=== PATIENT | male | born 1945 | race Caucasian/White ===

== ENCOUNTER 2021-05-26 14:46 | Inpatient (IN) ==
[2021-06-02] MEDS: *HR* OxyCODONE Immed Rel 5 MG TABLET PO PRN (20:32)
[2021-06-02] MEDS: carvediloL 6.25 MG TABLET PO SCH (21:22)
[2021-06-02] MEDS: Acetaminophen 325 MG TABLET PO PRN (22:17)
[2021-06-02] MEDS: diazePAM 5 MG TABLET PO PRN (22:18)
[2021-06-03] MEDS: *HR* OxyCODONE Immed Rel 5 MG TABLET PO PRN ×3 (04:47→19:37)
[2021-06-03] MEDS: *HR* Enoxaparin 40 MG/0.4 ML SYRINGE SQ SCH (04:47)
[2021-06-03 06:08] LABS: Basophils % 0.3 %; Eosinophils # 0.2 K/mcL (0.0-0.6); Eosinophils % 2.5 %; Hematocrit 38.2 % (37.5-50.1); Hemoglobin 12.3 g/dL (12.9-16.9); Immature Granulocytes % 0.7 % (0-4); Lymphocytes # 2.2 K/mcL (0.6-4.6); Lymphocytes % 30.2 %; Mean Corpuscular HGB Conc 32.2 g/dL (31.6-35.5); Mean Corpuscular Hemoglobin 29.5 pg (28.0-33.3); Mean Corpuscular Volume 91.6 fL (83.0-100.0); Mean Platelet Volume 10.1 fL (9.4-12.4); Monocytes % 13.8 %; Neutrophils # 3.8 K/mcL (1.6-8.9); Platelet Count 579 K/mcL (140-400); Red Blood Count 4.17 M/mcL (4.19-5.50); Red Cell Distribution Width 14.7 % (11.5-14.5); Segmented Neutrophils % 52.5 %; White Blood Count 7.2 K/mcL (4.3-11.1)
[2021-06-03 07:19] LABS: BUN/Creatinine Ratio 18 (6-26); Blood Urea Nitrogen 14 mg/dL (8-23); Calcium 9.5 mg/dL (8.6-10.3); Carbon Dioxide 29 mEq/L (23-29); Chloride 96 mEq/L (98-107); Glucose 83 mg/dL (70-105); Osmolality,Calculated 274 (280-300); Potassium 4.2 mEq/L (3.5-5.1); Sodium 132 mEq/L (136-145); eGFR For African Americans > 60 (> 60); eGFR For Non-African Americans > 60 (> 60)
[2021-06-03] MEDS ORDERED: NON-FORMULARY MEDICATION 1 EACH EACH PO SCH (09:00)
[2021-06-03] MEDS: amLODIPine 5 MG TABLET PO SCH (09:29)
[2021-06-03] MEDS: Cholecalciferol (D-3) 1,000 UNIT (25MCG) TABLET PO SCH (09:29)
[2021-06-03] MEDS: carvediloL 6.25 MG TABLET PO SCH ×2 (09:29→16:41)
[2021-06-03] MEDS: DHA PO SCH (09:30)
[2021-06-03] MEDS: FISH OIL PO SCH (09:30)
[2021-06-03] MEDS: OMEGA PO SCH (09:30)
[2021-06-03] MEDS: lisinopriL 20 MG TABLET PO SCH (09:30)
[2021-06-03] MEDS: EPA PO SCH (09:30)
[2021-06-04] MEDS: *HR* OxyCODONE Immed Rel 5 MG TABLET PO PRN ×4 (00:54→20:01)
[2021-06-04] MEDS: *HR* Enoxaparin 40 MG/0.4 ML SYRINGE SQ SCH (04:26)
[2021-06-04] MEDS: EPA PO SCH (08:06)
[2021-06-04] MEDS: OMEGA PO SCH (08:06)
[2021-06-04] MEDS: Cholecalciferol (D-3) 1,000 UNIT (25MCG) TABLET PO SCH (08:06)
[2021-06-04] MEDS: lisinopriL 20 MG TABLET PO SCH (08:06)
[2021-06-04] MEDS: FISH OIL PO SCH (08:06)
[2021-06-04] MEDS: amLODIPine 5 MG TABLET PO SCH (08:06)
[2021-06-04] MEDS: DHA PO SCH (08:06)
[2021-06-04] MEDS: carvediloL 6.25 MG TABLET PO SCH ×2 (08:06→16:04)
[2021-06-05] MEDS: *HR* OxyCODONE Immed Rel 5 MG TABLET PO PRN ×2 (00:43→05:21)
[2021-06-05] MEDS: *HR* Enoxaparin 40 MG/0.4 ML SYRINGE SQ SCH (05:22)
[2021-06-05 06:13] LABS: Hematocrit 38.3 % (37.5-50.1); Hemoglobin 12.4 g/dL (12.9-16.9); Mean Corpuscular HGB Conc 32.4 g/dL (31.6-35.5); Mean Corpuscular Hemoglobin 29.9 pg (28.0-33.3); Mean Corpuscular Volume 92.3 fL (83.0-100.0); Platelet Count 606 K/mcL (140-400); Red Blood Count 4.15 M/mcL (4.19-5.50); Red Cell Distribution Width 14.5 % (11.5-14.5); White Blood Count 6.9 K/mcL (4.3-11.1)
[2021-06-05 06:33] LABS: BUN/Creatinine Ratio 25 (6-26); Blood Urea Nitrogen 24 mg/dL (8-23); Carbon Dioxide 31 mEq/L (23-29); Chloride 95 mEq/L (98-107); Glucose 88 mg/dL (70-105); Magnesium 2.1 mg/dL (1.6-2.6); Osmolality,Calculated 273 (280-300); Potassium 4.6 mEq/L (3.5-5.1); Sodium 130 mEq/L (136-145); eGFR For African Americans > 60 (> 60); eGFR For Non-African Americans > 60 (> 60)
[2021-06-05] MEDS: carvediloL 6.25 MG TABLET PO SCH ×2 (08:03→17:27)
[2021-06-05] MEDS: lisinopriL 20 MG TABLET PO SCH (08:03)
[2021-06-05] MEDS: amLODIPine 5 MG TABLET PO SCH (08:03)
[2021-06-05] MEDS: Cholecalciferol (D-3) 1,000 UNIT (25MCG) TABLET PO SCH (08:04)
[2021-06-05] MEDS: EPA PO SCH (11:55)
[2021-06-05] MEDS: DHA PO SCH (11:55)
[2021-06-05] MEDS: OMEGA PO SCH (11:55)
[2021-06-05] MEDS: FISH OIL PO SCH (11:55)
[2021-06-05] MEDS: Acetaminophen 325 MG TABLET PO PRN (17:29)
[2021-06-06] MEDS: *HR* Enoxaparin 40 MG/0.4 ML SYRINGE SQ SCH (06:01)
[2021-06-06] MEDS: Acetaminophen 325 MG TABLET PO PRN (06:01)
[2021-06-06] MEDS: lisinopriL 20 MG TABLET PO SCH (08:18)
[2021-06-06] MEDS: Cholecalciferol (D-3) 1,000 UNIT (25MCG) TABLET PO SCH (08:18)
[2021-06-06] MEDS: carvediloL 6.25 MG TABLET PO SCH ×2 (08:18→17:49)
[2021-06-06] MEDS: amLODIPine 5 MG TABLET PO SCH (08:18)
[2021-06-06] MEDS: OMEGA PO SCH (10:11)
[2021-06-06] MEDS: EPA PO SCH (10:11)
[2021-06-06] MEDS: FISH OIL PO SCH (10:11)
[2021-06-06] MEDS: DHA PO SCH (10:11)
[2021-06-06] MEDS ORDERED: Ondansetron ODT 4 MG TAB.RAPDIS SL PRN (10:33)
[2021-06-06] MEDS ORDERED: Simethicone 80 MG TAB.CHEW PO PRN (10:34)
[2021-06-06] MEDS: carvediloL 25 MG TABLET PO SCH (17:18)
[2021-06-07] MEDS: Acetaminophen 325 MG TABLET PO PRN (05:25)
[2021-06-07] MEDS: *HR* Enoxaparin 40 MG/0.4 ML SYRINGE SQ SCH (05:25)
[2021-06-07] MEDS: carvediloL 25 MG TABLET PO SCH ×2 (12:07→17:41)
[2021-06-07] MEDS: lisinopriL 20 MG TABLET PO SCH (12:12)
[2021-06-07] MEDS: Cholecalciferol (D-3) 1,000 UNIT (25MCG) TABLET PO SCH (12:12)
[2021-06-07] MEDS: amLODIPine 5 MG TABLET PO SCH (12:12)
[2021-06-07] MEDS: EPA PO SCH (12:13)
[2021-06-07] MEDS: DHA PO SCH (12:13)
[2021-06-07] MEDS: OMEGA PO SCH (12:13)
[2021-06-07] MEDS: FISH OIL PO SCH (12:13)
[2021-06-08] MEDS: *HR* OxyCODONE Immed Rel 5 MG TABLET PO PRN (04:43)
[2021-06-08] MEDS: *HR* Enoxaparin 40 MG/0.4 ML SYRINGE SQ SCH (04:46)
[2021-06-08] MEDS: FISH OIL PO SCH (08:32)
[2021-06-08] MEDS: carvediloL 25 MG TABLET PO SCH ×2 (08:32→16:55)
[2021-06-08] MEDS: OMEGA PO SCH (08:32)
[2021-06-08] MEDS: EPA PO SCH (08:32)
[2021-06-08] MEDS: DHA PO SCH (08:32)
[2021-06-08] MEDS: amLODIPine 5 MG TABLET PO SCH (08:32)
[2021-06-08] MEDS: Cholecalciferol (D-3) 1,000 UNIT (25MCG) TABLET PO SCH (08:32)
[2021-06-08] MEDS: lisinopriL 20 MG TABLET PO SCH (08:32)
[2021-06-08] MEDS: Gabapentin 300 MG CAPSULE PO SCH ×2 (14:52→19:59)
[2021-06-09] MEDS: *HR* Enoxaparin 40 MG/0.4 ML SYRINGE SQ SCH (04:42)
[2021-06-09] MEDS: *HR* OxyCODONE Immed Rel 5 MG TABLET PO PRN (04:45)
[2021-06-09 04:50] LABS: Hematocrit 37.6 % (37.5-50.1); Hemoglobin 12.1 g/dL (12.9-16.9); Mean Corpuscular HGB Conc 32.2 g/dL (31.6-35.5); Mean Corpuscular Volume 93.1 fL (83.0-100.0); Mean Platelet Volume 9.9 fL (9.4-12.4); Platelet Count 512 K/mcL (140-400); Red Blood Count 4.04 M/mcL (4.19-5.50); Red Cell Distribution Width 14.4 % (11.5-14.5)
[2021-06-09 05:05] LABS: BUN/Creatinine Ratio 26 (6-26); Blood Urea Nitrogen 25 mg/dL (8-23); Calcium 9.7 mg/dL (8.6-10.3); Carbon Dioxide 28 mEq/L (23-29); Chloride 100 mEq/L (98-107); Glucose 92 mg/dL (70-105); Osmolality,Calculated 280 (280-300); Potassium 4.7 mEq/L (3.5-5.1); Sodium 133 mEq/L (136-145); eGFR For African Americans > 60 (> 60); eGFR For Non-African Americans > 60 (> 60)
[2021-06-09] MEDS: EPA PO SCH (09:19)
[2021-06-09] MEDS: DHA PO SCH (09:19)
[2021-06-09] MEDS: OMEGA PO SCH (09:19)
[2021-06-09] MEDS: FISH OIL PO SCH (09:19)
[2021-06-09] MEDS: Gabapentin 300 MG CAPSULE PO SCH ×3 (09:20→19:37)
[2021-06-09] MEDS: Cholecalciferol (D-3) 1,000 UNIT (25MCG) TABLET PO SCH (09:20)
[2021-06-09] MEDS: amLODIPine 5 MG TABLET PO SCH (09:20)
[2021-06-09] MEDS: lisinopriL 20 MG TABLET PO SCH (09:20)
[2021-06-09] MEDS: carvediloL 25 MG TABLET PO SCH ×2 (09:20→17:06)
[2021-06-10] MEDS: *HR* Enoxaparin 40 MG/0.4 ML SYRINGE SQ SCH (04:58)
[2021-06-10] MEDS: lisinopriL 20 MG TABLET PO SCH (08:06)
[2021-06-10] MEDS: carvediloL 25 MG TABLET PO SCH (08:06)
[2021-06-10] MEDS: Gabapentin 300 MG CAPSULE PO SCH ×3 (08:06→19:51)
[2021-06-10] MEDS: amLODIPine 5 MG TABLET PO SCH (08:06)
[2021-06-10] MEDS: Cholecalciferol (D-3) 1,000 UNIT (25MCG) TABLET PO SCH (08:07)
[2021-06-10] MEDS: OMEGA PO SCH (08:07)
[2021-06-10] MEDS: DHA PO SCH (08:07)
[2021-06-10] MEDS: FISH OIL PO SCH (08:07)
[2021-06-10] MEDS: EPA PO SCH (08:07)
[2021-06-10] MEDS: carvediloL 6.25 MG TABLET PO SCH (17:06)
[2021-06-11] MEDS: *HR* Enoxaparin 40 MG/0.4 ML SYRINGE SQ SCH (05:36)
[2021-06-11] MEDS: amLODIPine 5 MG TABLET PO SCH (08:35)
[2021-06-11] MEDS: Cholecalciferol (D-3) 1,000 UNIT (25MCG) TABLET PO SCH (08:35)
[2021-06-11] MEDS: carvediloL 6.25 MG TABLET PO SCH ×2 (08:35→16:59)
[2021-06-11] MEDS: Gabapentin 300 MG CAPSULE PO SCH ×3 (08:35→20:43)
[2021-06-11] MEDS: EPA PO SCH (08:36)
[2021-06-11] MEDS: FISH OIL PO SCH (08:36)
[2021-06-11] MEDS: DHA PO SCH (08:36)
[2021-06-11] MEDS: OMEGA PO SCH (08:36)
[2021-06-11] MEDS: lisinopriL 20 MG TABLET PO SCH (08:36)
[2021-06-12] MEDS: *HR* OxyCODONE Immed Rel 5 MG TABLET PO PRN (02:11)
[2021-06-12] MEDS: *HR* Enoxaparin 40 MG/0.4 ML SYRINGE SQ SCH (05:52)
[2021-06-12] MEDS: Cholecalciferol (D-3) 1,000 UNIT (25MCG) TABLET PO SCH (08:33)
[2021-06-12] MEDS: lisinopriL 20 MG TABLET PO SCH (08:33)
[2021-06-12] MEDS: carvediloL 6.25 MG TABLET PO SCH ×2 (08:33→16:40)
[2021-06-12] MEDS: amLODIPine 5 MG TABLET PO SCH (08:33)
[2021-06-12] MEDS: Gabapentin 300 MG CAPSULE PO SCH ×3 (08:33→21:30)
[2021-06-12] MEDS: FISH OIL PO SCH (08:35)
[2021-06-12] MEDS: DHA PO SCH (08:35)
[2021-06-12] MEDS: OMEGA PO SCH (08:35)
[2021-06-12] MEDS: EPA PO SCH (08:35)
[2021-06-13] MEDS: *HR* OxyCODONE Immed Rel 5 MG TABLET PO PRN (06:13)
[2021-06-13] MEDS: *HR* Enoxaparin 40 MG/0.4 ML SYRINGE SQ SCH (06:13)
[2021-06-13] MEDS: Cholecalciferol (D-3) 1,000 UNIT (25MCG) TABLET PO SCH (09:11)
[2021-06-13] MEDS: Gabapentin 300 MG CAPSULE PO SCH ×3 (09:11→21:00)
[2021-06-13] MEDS: lisinopriL 20 MG TABLET PO SCH (09:11)
[2021-06-13] MEDS: carvediloL 6.25 MG TABLET PO SCH ×2 (09:11→16:56)
[2021-06-13] MEDS: amLODIPine 5 MG TABLET PO SCH (09:11)
[2021-06-13] MEDS: OMEGA PO SCH (09:13)
[2021-06-13] MEDS: FISH OIL PO SCH (09:13)
[2021-06-13] MEDS: DHA PO SCH (09:13)
[2021-06-13] MEDS: EPA PO SCH (09:13)
[2021-06-13] MEDS: Sennosides 8.6 MG TABLET PO SCH ×2 (21:00→21:09)
[2021-06-14] MEDS: *HR* Enoxaparin 40 MG/0.4 ML SYRINGE SQ SCH (04:33)
[2021-06-14] MEDS: *HR* OxyCODONE Immed Rel 5 MG TABLET PO PRN (04:34)
[2021-06-14] MEDS: Gabapentin 300 MG CAPSULE PO SCH ×3 (08:42→20:52)
[2021-06-14] MEDS: amLODIPine 5 MG TABLET PO SCH (08:42)
[2021-06-14] MEDS: DHA PO SCH (08:42)
[2021-06-14] MEDS: EPA PO SCH (08:42)
[2021-06-14] MEDS: Cholecalciferol (D-3) 1,000 UNIT (25MCG) TABLET PO SCH (08:42)
[2021-06-14] MEDS: FISH OIL PO SCH (08:42)
[2021-06-14] MEDS: lisinopriL 20 MG TABLET PO SCH (08:42)
[2021-06-14] MEDS: Sennosides 8.6 MG TABLET PO SCH ×2 (08:42→20:52)
[2021-06-14] MEDS: OMEGA PO SCH (08:42)
[2021-06-14] MEDS: carvediloL 6.25 MG TABLET PO SCH ×2 (08:43→16:34)
[2021-06-15 04:39] LABS: Hematocrit 37.3 % (37.5-50.1); Hemoglobin 11.9 g/dL (12.9-16.9); Mean Corpuscular HGB Conc 31.9 g/dL (31.6-35.5); Mean Corpuscular Hemoglobin 29.6 pg (28.0-33.3); Mean Corpuscular Volume 92.8 fL (83.0-100.0); Mean Platelet Volume 9.9 fL (9.4-12.4); Platelet Count 447 K/mcL (140-400); Red Blood Count 4.02 M/mcL (4.19-5.50); Red Cell Distribution Width 14.1 % (11.5-14.5); White Blood Count 6.4 K/mcL (4.3-11.1)
[2021-06-15 04:54] LABS: BUN/Creatinine Ratio 31 (6-26); Blood Urea Nitrogen 30 mg/dL (8-23); Calcium 9.4 mg/dL (8.6-10.3); Carbon Dioxide 28 mEq/L (23-29); Chloride 99 mEq/L (98-107); Glucose 99 mg/dL (70-105); Magnesium 2.1 mg/dL (1.6-2.6); Osmolality,Calculated 282 (280-300); Potassium 4.7 mEq/L (3.5-5.1); Sodium 133 mEq/L (136-145); eGFR For African Americans > 60 (> 60); eGFR For Non-African Americans > 60 (> 60)
[2021-06-15] MEDS: *HR* Enoxaparin 40 MG/0.4 ML SYRINGE SQ SCH (05:22)
[2021-06-15] MEDS: lisinopriL 20 MG TABLET PO SCH (08:14)
[2021-06-15] MEDS: Cholecalciferol (D-3) 1,000 UNIT (25MCG) TABLET PO SCH (08:14)
[2021-06-15] MEDS: Gabapentin 300 MG CAPSULE PO SCH ×3 (08:16→20:00)
[2021-06-15] MEDS: amLODIPine 5 MG TABLET PO SCH (08:16)
[2021-06-15] MEDS: carvediloL 6.25 MG TABLET PO SCH ×2 (08:17→17:27)
[2021-06-15] MEDS: Sennosides 8.6 MG TABLET PO SCH ×2 (08:18→20:00)
[2021-06-15] MEDS: FISH OIL PO SCH (09:12)
[2021-06-15] MEDS: DHA PO SCH (09:12)
[2021-06-15] MEDS: EPA PO SCH (09:12)
[2021-06-15] MEDS: OMEGA PO SCH (09:12)
[2021-06-16] MEDS: *HR* OxyCODONE Immed Rel 5 MG TABLET PO PRN (01:04)
[2021-06-16] MEDS: Acetaminophen 325 MG TABLET PO PRN (03:07)
[2021-06-16] MEDS: diazePAM 5 MG TABLET PO PRN (03:07)
[2021-06-16] MEDS: *HR* Enoxaparin 40 MG/0.4 ML SYRINGE SQ SCH (06:53)
[2021-06-16] MEDS: amLODIPine 5 MG TABLET PO SCH (08:36)
[2021-06-16] MEDS: lisinopriL 20 MG TABLET PO SCH (08:36)
[2021-06-16] MEDS: Sennosides 8.6 MG TABLET PO SCH ×2 (08:36→20:12)
[2021-06-16] MEDS: Cholecalciferol (D-3) 1,000 UNIT (25MCG) TABLET PO SCH (08:36)
[2021-06-16] MEDS: Gabapentin 300 MG CAPSULE PO SCH ×3 (08:36→20:12)
[2021-06-16] MEDS: carvediloL 6.25 MG TABLET PO SCH ×2 (08:36→16:07)
[2021-06-16] MEDS: OMEGA PO SCH (08:37)
[2021-06-16] MEDS: DHA PO SCH (08:37)
[2021-06-16] MEDS: FISH OIL PO SCH (08:37)
[2021-06-16] MEDS: EPA PO SCH (08:37)
[2021-06-16] MEDS: polyethylene glycoL 3350 17 GM POWD.PACK PO PRN (10:16)
[2021-06-16] MEDS ORDERED: 0.9 % Sodium Chloride 1,000 ML IVC SCH (19:30)
[2021-06-17] MEDS: *HR* Enoxaparin 40 MG/0.4 ML SYRINGE SQ SCH (04:57)
[2021-06-17] MEDS: amLODIPine 5 MG TABLET PO SCH (08:05)
[2021-06-17] MEDS: Gabapentin 300 MG CAPSULE PO SCH ×3 (08:06→20:21)
[2021-06-17] MEDS: Sennosides 8.6 MG TABLET PO SCH ×2 (08:06→20:21)
[2021-06-17] MEDS: Cholecalciferol (D-3) 1,000 UNIT (25MCG) TABLET PO SCH (08:06)
[2021-06-17] MEDS: EPA PO SCH (08:06)
[2021-06-17] MEDS: OMEGA PO SCH (08:06)
[2021-06-17] MEDS: DHA PO SCH (08:06)
[2021-06-17] MEDS: FISH OIL PO SCH (08:06)
[2021-06-17] MEDS: lisinopriL 20 MG TABLET PO SCH (08:06)
[2021-06-17] MEDS: carvediloL 6.25 MG TABLET PO SCH ×2 (08:06→16:07)
[2021-06-17] MEDS: Acetaminophen 325 MG TABLET PO PRN (16:05)
[2021-06-18] MEDS: Acetaminophen 325 MG TABLET PO PRN ×2 (01:32→12:17)
[2021-06-18] MEDS: diazePAM 5 MG TABLET PO PRN (01:33)
[2021-06-18] MEDS: *HR* Enoxaparin 40 MG/0.4 ML SYRINGE SQ SCH (06:30)
[2021-06-18] MEDS: *HR* OxyCODONE Immed Rel 5 MG TABLET PO PRN (06:35)
[2021-06-18] MEDS: Gabapentin 300 MG CAPSULE PO SCH ×3 (08:34→20:35)
[2021-06-18] MEDS: lisinopriL 20 MG TABLET PO SCH (08:35)
[2021-06-18] MEDS: Sennosides 8.6 MG TABLET PO SCH ×2 (08:35→20:35)
[2021-06-18] MEDS: Cholecalciferol (D-3) 1,000 UNIT (25MCG) TABLET PO SCH (08:35)
[2021-06-18] MEDS: amLODIPine 5 MG TABLET PO SCH (08:35)
[2021-06-18] MEDS: carvediloL 6.25 MG TABLET PO SCH ×2 (08:35→17:30)
[2021-06-18] MEDS: DHA PO SCH (08:36)
[2021-06-18] MEDS: OMEGA PO SCH (08:36)
[2021-06-18] MEDS: FISH OIL PO SCH (08:36)
[2021-06-18] MEDS: EPA PO SCH (08:36)
[2021-06-18] MEDS: polyethylene glycoL 3350 17 GM POWD.PACK PO PRN (14:55)
[2021-06-19] MEDS: *HR* Enoxaparin 40 MG/0.4 ML SYRINGE SQ SCH (05:58)
[2021-06-19] MEDS: Acetaminophen 325 MG TABLET PO PRN ×2 (06:00→20:43)
[2021-06-19] MEDS: Gabapentin 300 MG CAPSULE PO SCH ×3 (09:10→20:38)
[2021-06-19] MEDS: carvediloL 6.25 MG TABLET PO SCH ×2 (09:10→17:44)
[2021-06-19] MEDS: lisinopriL 20 MG TABLET PO SCH (09:10)
[2021-06-19] MEDS: Sennosides 8.6 MG TABLET PO SCH ×2 (09:10→20:38)
[2021-06-19] MEDS: amLODIPine 5 MG TABLET PO SCH (09:10)
[2021-06-19] MEDS: FISH OIL PO SCH (09:12)
[2021-06-19] MEDS: EPA PO SCH (09:12)
[2021-06-19] MEDS: DHA PO SCH (09:12)
[2021-06-19] MEDS: OMEGA PO SCH (09:12)
[2021-06-19] MEDS: Cholecalciferol (D-3) 1,000 UNIT (25MCG) TABLET PO SCH (09:12)
[2021-06-20] MEDS: Acetaminophen 325 MG TABLET PO PRN ×2 (03:31→20:17)
[2021-06-20] MEDS: *HR* OxyCODONE Immed Rel 5 MG TABLET PO PRN (06:17)
[2021-06-20] MEDS: *HR* Enoxaparin 40 MG/0.4 ML SYRINGE SQ SCH (06:17)
[2021-06-20] MEDS: Sennosides 8.6 MG TABLET PO SCH ×2 (08:03→20:16)
[2021-06-20] MEDS: Gabapentin 300 MG CAPSULE PO SCH ×3 (08:03→20:16)
[2021-06-20] MEDS: amLODIPine 5 MG TABLET PO SCH (08:03)
[2021-06-20] MEDS: Cholecalciferol (D-3) 1,000 UNIT (25MCG) TABLET PO SCH (08:03)
[2021-06-20] MEDS: carvediloL 6.25 MG TABLET PO SCH ×2 (08:03→17:34)
[2021-06-20] MEDS: lisinopriL 20 MG TABLET PO SCH (08:04)
[2021-06-20] MEDS: FISH OIL PO SCH (08:14)
[2021-06-20] MEDS: DHA PO SCH (08:14)
[2021-06-20] MEDS: OMEGA PO SCH (08:14)
[2021-06-20] MEDS: EPA PO SCH (08:14)
[2021-06-21] MEDS: diazePAM 5 MG TABLET PO PRN (05:55)
[2021-06-21] MEDS: *HR* Enoxaparin 40 MG/0.4 ML SYRINGE SQ SCH (05:55)
[2021-06-21] MEDS: Acetaminophen 325 MG TABLET PO PRN (05:55)
[2021-06-21] MEDS: Cholecalciferol (D-3) 1,000 UNIT (25MCG) TABLET PO SCH (07:54)
[2021-06-21] MEDS: Sennosides 8.6 MG TABLET PO SCH ×2 (07:54→21:15)
[2021-06-21] MEDS: lisinopriL 20 MG TABLET PO SCH (07:54)
[2021-06-21] MEDS: amLODIPine 5 MG TABLET PO SCH (07:54)
[2021-06-21] MEDS: OMEGA PO SCH (07:55)
[2021-06-21] MEDS: FISH OIL PO SCH (07:55)
[2021-06-21] MEDS: EPA PO SCH (07:55)
[2021-06-21] MEDS: DHA PO SCH (07:55)
[2021-06-21] MEDS: Gabapentin 300 MG CAPSULE PO SCH ×3 (07:55→22:12)
[2021-06-21] MEDS: carvediloL 6.25 MG TABLET PO SCH ×2 (07:55→16:54)
[2021-06-21] MEDS: Gabapentin 400 MG CAPSULE PO SCH (21:16)
[2021-06-22] MEDS: *HR* OxyCODONE Immed Rel 5 MG TABLET PO PRN (04:06)
[2021-06-22] MEDS: *HR* Enoxaparin 40 MG/0.4 ML SYRINGE SQ SCH (05:27)
[2021-06-22] MEDS: lisinopriL 20 MG TABLET PO SCH (08:38)
[2021-06-22] MEDS: Gabapentin 300 MG CAPSULE PO SCH ×2 (08:38→15:18)
[2021-06-22] MEDS: carvediloL 6.25 MG TABLET PO SCH ×2 (08:39→17:47)
[2021-06-22] MEDS: FISH OIL PO SCH (08:39)
[2021-06-22] MEDS: DHA PO SCH (08:39)
[2021-06-22] MEDS: Cholecalciferol (D-3) 1,000 UNIT (25MCG) TABLET PO SCH (08:39)
[2021-06-22] MEDS: OMEGA PO SCH (08:39)
[2021-06-22] MEDS: amLODIPine 5 MG TABLET PO SCH (08:39)
[2021-06-22] MEDS: EPA PO SCH (08:39)
[2021-06-22] MEDS: Sennosides 8.6 MG TABLET PO SCH ×2 (08:39→20:25)
[2021-06-22 20:16] VITALS: O2SAT 95
[2021-06-22] MEDS: Gabapentin 400 MG CAPSULE PO SCH (20:25)
[2021-06-23] MEDS: *HR* Enoxaparin 40 MG/0.4 ML SYRINGE SQ SCH (05:45)
[2021-06-23] MEDS: *HR* OxyCODONE Immed Rel 5 MG TABLET PO PRN (05:50)
[2021-06-23] MEDS: Sennosides 8.6 MG TABLET PO SCH (08:22)
[2021-06-23] MEDS: DHA PO SCH (08:22)
[2021-06-23] MEDS: EPA PO SCH (08:22)
[2021-06-23] MEDS: OMEGA PO SCH (08:22)
[2021-06-23] MEDS: FISH OIL PO SCH (08:22)
[2021-06-23] MEDS: lisinopriL 20 MG TABLET PO SCH (08:23)
[2021-06-23] MEDS: Cholecalciferol (D-3) 1,000 UNIT (25MCG) TABLET PO SCH (08:23)
[2021-06-23] MEDS: amLODIPine 5 MG TABLET PO SCH (08:23)
[2021-06-23] MEDS: Gabapentin 300 MG CAPSULE PO SCH (08:24)
[2021-06-23] MEDS: carvediloL 6.25 MG TABLET PO SCH (08:25)
[2021-06-23 09:52] VITALS: BP 131/69; PULSE 78; RESP 16; TEMP 98.1
[2021-06-23] MEDS ORDERED: Gabapentin 300 MG CAPSULE PO SCH (21:00)
== END 2021-06-23 14:00 | disposition home or self-care (01) | DRG 560 ==
LOC: INPGRE 06-02 17:46
PROVIDERS: ADMIT Family Medicine; ATTEND Family Medicine